=== PATIENT | female | born 1935 | race Caucasian/White ===

== ENCOUNTER 2020-02-07 15:18 | Day surgery (SDCO) | payer MEDICARE ==
[~2020-02-07 15:18] MED LIST: CEFDINIR300 MG PO; CLONAZEPAM0.5 MG PO; CYMBALTA 30MG C30 MG PO; METOPROLOL SUCC50 MG PO; PRAVACHOL20 M1 PO; PREDNISONE 20MG20 MG PO; SEROQUEL 25MG T25 MG PO
[2020-02-07 18:59] LABS: BASOPHIL 0.5 % (0-2); EOSINOPHIL 2.9 % (0-7); HCT 43.5 % (37.0-47.0); HGB 13.5 g/dl (12.5-16.0); LYMPHOCYTE 16.6 % (15-48); MCH 28.4 pg (25.0-31.0); MCV 91.4 fL (78.0-100.0); MONOCYTE 5.4 % (0-12); MPV 9.6 fL (6.0-9.5); NEUTROPHIL 74.3 % (41-80); NRBC 0; PLT 266 K/uL (150-400); RBC 4.76 M/uL (4.20-5.40); RDW 15.2 % (11.5-14.0); WBC 9.8 K/uL (4.0-10.5)
[2020-02-07 19:19] LABS: INR 0.98 (0.9-1.2); PROTHROMBIN TIME 12.3 SECONDS (11.4-13.6); PTT 26.9 SECONDS (22.2-34.7)
[2020-02-07 19:28] LABS: ALBUMIN 3.4 g/dL (3.4-5.0); BILIRUBIN - TOTAL 0.5 mg/dL (0.2-1.0); BUN/CREAT RATIO (CALC) 15.8 RATIO; C-REACTIVE PROTEIN 0.4 mg/dL (<=0.90); CREATININE 0.76 mg/dL (0.51-0.95); GLOBULIN (CALCULATION) 2.9 g/dL; TOTAL PROTEIN 6.3 g/dL (6.4-8.2)
[2020-02-07 21:14] LABS: LACTIC ACID 0.5 mmol/L (0.4-1.9)
[2020-02-08 02:07] LABS: BILIRUBIN NEGATIVE (NEGATIVE); BLOOD 1+ Ery/uL (NEGATIVE); CLARITY CLEAR (CLEAR); GLUCOSE (U) NORMAL (NORMAL); LEUKOCYTES NEGATIVE Leu/uL (NEGATIVE); NITRITE NEGATIVE (NEGATIVE); PROTEIN NEGATIVE (NEGATIVE); UROBILINOGEN 0.2 mg/dL (0.2-1.0); pH 6.5 (5.0-9.0)
[2020-02-08 02:14] LABS: COLOR STRAW (YELLOW)
[2020-02-08 02:15] LABS: SQUAMOUS EPITHELIAL CELLS RARE; URINARY WBC RARE
[2020-02-08 06:23] LABS: BASOPHIL 0.2 % (0-2); EOSINOPHIL 0 % (0-7); HCT 44.3 % (37.0-47.0); HGB 13.9 g/dl (12.5-16.0); LYMPHOCYTE 8.6 % (15-48); MCH 27.7 pg (25.0-31.0); MCHC 31.4 g/dL (32.0-36.0); MCV 88.4 fL (78.0-100.0); MONOCYTE 0.7 % (0-12); MPV 10.2 fL (6.0-9.5); NRBC 0; PLT 266 K/uL (150-400); RBC 5.01 M/uL (4.20-5.40); RDW 15.2 % (11.5-14.0)
[2020-02-08 06:42] LABS: BUN/CREAT RATIO (CALC) 19.7 RATIO; CREATININE 0.76 mg/dL (0.51-0.95); POTASSIUM 4.6 mmol/L (3.5-5.1)
[2020-02-08] MEDS ORDERED: TRELEGY ELLIPT1 EACH INH (08:20)
[2020-02-08] MEDS ORDERED: VENTOLIN HFA IN18 GM INH (08:20)
--- NOTE | 2020-02-08 12:18 | NUR ---
02/08/20 Ms. Hill is a 84 y/o woman. Her daughter, Leatha Putnam lives in the home. Ms. Hill is followed by [facility] and [facility] in the past. Ms. Putnam would like [facility] resumed to include social work to evaluate for a Medicaid Waiver program. A referral was made to [facility] via [facility]. - Ms. Hill has home 02. Report given to MS BYRON Rose
[2020-02-08] MEDS ORDERED: CEFDINIR300 MG PO (14:18)
--- NOTE | 2020-02-08 16:28 | NUR ---
pt lives with dtr; independent with ADL's and wears 3 liters oxygen at home. Please advise of any discharge needs
== END 2020-02-08 20:30 | disposition home or self-care (01) ==
LOC: FER 15:18 → FMS 21:57
PROVIDERS: Emergency Medicine; Emergency Medicine Emergency Medical Services; Nurse Practitioner; ADMIT Internal Medicine
DX: J20.9 Acute bronchitis, unspecified (principal); J44.1 Chronic obstructive pulmonary disease with (acute) exacerbation; J44.0 Chronic obstructive pulmonary disease with (acute) lower respiratory infection; I10 Essential (primary) hypertension; F17.210 Nicotine dependence, cigarettes, uncomplicated; F03.90 Unspecified dementia, unspecified severity, without behavioral disturbance, psychotic disturbance, mood disturbance, and anxiety; J96.10 Chronic respiratory failure, unspecified whether with hypoxia or hypercapnia; E78.5 Hyperlipidemia, unspecified; F32.9 Major depressive disorder, single episode, unspecified; F41.1 Generalized anxiety disorder; Z79.899 Other long term (current) drug therapy; Z88.1 Allergy status to other antibiotic agents; Z88.2 Allergy status to sulfonamides; Z20.828 Contact with and (suspected) exposure to other viral communicable diseases
CPT/HCPCS: 36415; 36600; 71045; 71275; 80048; 80053; 81001; 82728; 82803; 83605; 83615; 83880; 84145; 84484; 85025; 85379; 85610; 85730; 86140; 87040; 93005; 94640; 94664; G0378; J0692; J1650; J1940; J2920; J2930; Q9967; U0002

== ENCOUNTER 2020-04-20 18:46 | Emergency (ER) | payer MEDICARE ==
[~2020-04-20 18:46] MED LIST changes: +TRELEGY ELLIPT1 EACH INH; +VENTOLIN HFA IN18 GM INH
[2020-04-20 20:00] LABS: BASOPHIL 0.6 % (0-2); HCT 40.4 % (37.0-47.0); HGB 12.5 g/dl (12.5-16.0); LYMPHOCYTE 20.5 % (15-48); MCH 28.9 pg (25.0-31.0); MCHC 30.9 g/dL (32.0-36.0); MCV 93.3 fL (78.0-100.0); MONOCYTE 6.1 % (0-12); MPV 10.1 fL (6.0-9.5); NEUTROPHIL 69.5 % (41-80); NRBC 0; PLT 195 K/uL (150-400); RBC 4.33 M/uL (4.20-5.40); RDW 14.5 % (11.5-14.0); WBC 6.4 K/uL (4.0-10.5)
[2020-04-20 20:15] LABS: BILIRUBIN NEGATIVE (NEGATIVE); BLOOD 3+ Ery/uL (NEGATIVE); CLARITY CLEAR (CLEAR); COLOR YELLOW (YELLOW); GLUCOSE (U) NORMAL (NORMAL); LEUKOCYTES 2+ Leu/uL (NEGATIVE); NITRITE NEGATIVE (NEGATIVE); PROTEIN NEGATIVE (NEGATIVE); UROBILINOGEN 0.2 mg/dL (0.2-1.0); pH 6.5 (5.0-9.0)
[2020-04-20 20:15] LABS: BUN/CREAT RATIO (CALC) 21.7 RATIO; CREATININE 0.69 mg/dL (0.51-0.95); POTASSIUM 3.6 mmol/L (3.5-5.1)
[2020-04-20 20:25] LABS: BACTERIA TRACE
[2020-04-20] MEDS ORDERED: MACROBID100 MG PO (20:47)
[2020-04-20] MEDS ORDERED: AUGMENTIN 875-1 EACH PO (20:56)
== END 2020-04-20 21:20 | disposition home or self-care (01) ==
LOC: FER 18:46
PROVIDERS: Nurse Practitioner Family
DX: N39.0 Urinary tract infection, site not specified (principal); F03.90 Unspecified dementia, unspecified severity, without behavioral disturbance, psychotic disturbance, mood disturbance, and anxiety; J43.9 Emphysema, unspecified; Z85.118 Personal history of other malignant neoplasm of bronchus and lung; Z88.1 Allergy status to other antibiotic agents; Z88.2 Allergy status to sulfonamides; Z99.81 Dependence on supplemental oxygen
CPT/HCPCS: 36415; 80048; 81001; 85025; 87088; 99285; J0696

== ENCOUNTER 2020-04-27 16:01 | Emergency (ER) | payer MEDICARE ==
[~2020-04-27 16:01] MED LIST changes: +AUGMENTIN 875-1 EACH PO; +MACROBID100 MG PO
[2020-04-27 18:55] LABS: BASOPHIL 1.1 % (0-2); EOSINOPHIL 3.9 % (0-7); HCT 47.6 % (37.0-47.0); LYMPHOCYTE 15.8 % (15-48); MCH 29.4 pg (25.0-31.0); MCHC 31.5 g/dL (32.0-36.0); MCV 93.2 fL (78.0-100.0); MONOCYTE 4.9 % (0-12); MPV 10.9 fL (6.0-9.5); NEUTROPHIL 73.7 % (41-80); NRBC 0; PLT 341 K/uL (150-400); RBC 5.11 M/uL (4.20-5.40); RDW 14.2 % (11.5-14.0); WBC 9.8 K/uL (4.0-10.5)
[2020-04-27 19:05] LABS: BUN/CREAT RATIO (CALC) 11.8 RATIO; CREATININE 0.93 mg/dL (0.51-0.95); POTASSIUM 4.2 mmol/L (3.5-5.1)
[2020-04-27 20:05] LABS: BILIRUBIN NEGATIVE (NEGATIVE); BLOOD 3+ Ery/uL (NEGATIVE); CLARITY CLEAR (CLEAR); COLOR YELLOW (YELLOW); GLUCOSE (U) NORMAL (NORMAL); LEUKOCYTES NEGATIVE Leu/uL (NEGATIVE); NITRITE NEGATIVE (NEGATIVE); PROTEIN TRACE (LOW) mg/dL (NEGATIVE); SPECIFIC GRAVITY 1.025 (1.001-1.030); UROBILINOGEN 0.2 mg/dL (0.2-1.0); pH 6.5 (5.0-9.0)
[2020-04-27 20:10] LABS: SQUAMOUS EPITHELIAL CELLS RARE
[2020-04-27] MEDS ORDERED: ZOFRAN4 M1 PO (20:27)
== END 2020-04-27 23:29 | disposition home or self-care (01) ==
LOC: FER 16:01
PROVIDERS: Nurse Practitioner Family
DX: R30.0 Dysuria (principal); R11.0 Nausea; I10 Essential (primary) hypertension; J44.9 Chronic obstructive pulmonary disease, unspecified; Z85.118 Personal history of other malignant neoplasm of bronchus and lung; Z85.828 Personal history of other malignant neoplasm of skin; Z88.1 Allergy status to other antibiotic agents; Z88.2 Allergy status to sulfonamides; Z87.440 Personal history of urinary (tract) infections
CPT/HCPCS: 36415; 80048; 81001; 85025; J2405